=== PATIENT | male | born 1985 | race African-American/Black ===

== ENCOUNTER 2017-02-23 09:38 | Emergency (ER) | payer OTHER ==
[~2017-02-23] VITALS: Ht 167.6 cm; Wt 112.0 kg
[2017-02-23 09:46] VITALS: Ht 167.6 cm; Wt 112.0 kg
[2017-02-23] MEDS ORDERED: HALOPERIDOL 5 MG INJ IM STA (10:55)
[2017-02-23] MEDS ORDERED: LORAZEPAM 2 MG INJ IM ONE (11:00)
--- NOTE | 2017-02-23 12:00 | ERD ---
ER Documentation Chief Complaint Date/Time DATE: 02/23/17 TIME: 11:55 Chief Complaint Patient needs to get a medication refill HPI This is a 31-year-old male who says he needs Valium. The patient says he has psych history but does not know what it is. He states that he just wants some Valium and he wants to go home. The patient is not being very cooperative during exam. When entering the room the patient has a shorts pulled down. He is walking in the hallways trying to use the telephones etc. Says he is not homicidal or suicidal ROS All systems reviewed and are negative except as per history of present illness. Allergies Allergies: Coded Allergies: No Known Allergy (Unverified , 02/23/17) PMhx/Soc Hx Psychiatric Problems: Yes (POSSIBLE PSYCH PROBLEM) FmHx Family History: No coronary disease Physical Exam Vitals Vital Signs Date Time Temp Pulse Resp B/P Pulse Ox O2 Delivery O2 Flow Rate FiO2 02/23/17 09:46 97.7 91 20 128/89 99 Physical Exam Const: [] Head: Atraumatic Eyes: Normal Conjunctiva ENT: Normal External Ears, Nose and Mouth. Neck: Full range of motion..~ No meningismus. Resp: Clear to auscultation bilaterally Cardio: Regular rate and rhythm, no murmurs Abd: Soft, non tender, non distended. Normal bowel sounds Skin: No petechiae or rashes Back: No midline or flank tenderness Ext: No cyanosis, or edema Neur: Awake and alert Psych: Patient has a very strange affect. He will look and stare you without speaking then suddenly start talking very quickly and tangentially. Stating he needs Valium. Results 24 hrs Current Medications Medications (Trade) Dose Ordered Sig/Domingo Route PRN Reason Start Time Stop Time Status Last Admin Dose Admin Haloperidol (Haldol) 5 mg ONCE STAT IM 02/23/17 10:55 02/23/17 10:57 DC 02/23/17 11:11 Lorazepam (Ativan) 1 mg ONCE ONCE IM 02/23/17 11:00 02/23/17 11:01 DC 02/23/17 11:12 Procedures/MDM Patient was moved from ED2 to ED1. Ordered a psych workup was going to have telemetry psych evaluate him for a hold. Patient is bordering on agitation and has very bizarre behavior. He cannot get a good history out of him. Patient left the ER temporarily returned to his room. 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
[2017-02-23 13:56] LABS: BASOPHIL # 0.1 10^3/ul (0.0-0.1); BASOPHILS % 0.7 % (0.0-2.0); EOSINOPHILS # 0.2 10^3/ul (0.0-0.5); EOSINOPHILS % 2.7 % (0.0-7.0); HEMATOCRIT 43.2 % (42.0-52.0); HEMOGLOBIN 14.4 g/dl (14.0-18.0); LYMPHOCYTES # 2.5 10^3/ul (0.8-2.9); LYMPHOCYTES % 33.2 % (15.0-51.0); MEAN CORPUSCULAR HEMOGLOBIN 29.6 pg (29.0-33.0); MEAN CORPUSCULAR HGB CONC 33.3 g/dl (32.0-37.0); MEAN CORPUSCULAR VOLUME 88.7 fl (82.0-101.0); MEAN PLATELET VOLUME 12.5 fl (7.4-10.4); MONOCYTE # 0.6 10^3/ul (0.3-0.9); NEUTROPHIL # 4.2 10^3/ul (1.6-7.5); NEUTROPHILS % 55.1 % (39.0-77.0); PLATELET COUNT 266 10^3/UL (140-415); RED BLOOD COUNT 4.87 10^6/ul (4.70-6.10); RED CELL DISTRIBUTION WIDTH 13.8 % (11.5-14.5); WHITE BLOOD COUNT 7.5 10^3/ul (4.8-10.8)
[2017-02-23 14:04] LABS: ALANINE AMINOTRANSFERASE 61 IU/L (13-69); ALBUMIN 4.4 g/dl (3.3-4.9); ALBUMIN/GLOBULIN RATIO 1.46; ALKALINE PHOSPHATASE 103 IU/L (42-121); ANION GAP 20 (8-16); ASPARTATE AMINO TRANSFERASE 48 IU/L (15-46); BILIRUBIN,INDIRECT 0.2 mg/dl (0-1.1); BILIRUBIN,TOTAL 0.2 mg/dl (0.2-1.3); BLOOD UREA NITROGEN 10 mg/dl (7-20); CARBON DIOXIDE 29 mmol/L (21-31); CHLORIDE 99 mmol/L (97-110); CREATININE 0.93 mg/dl (0.61-1.24); GLUCOSE 97 mg/dl (70-220); POTASSIUM 3.7 mmol/L (3.5-5.1); SODIUM 144 mmol/L (135-144); TOTAL PROTEIN 7.4 g/dl (6.1-8.1)
[2017-02-23 14:06] LABS: ACETAMINOPHEN < 10.0 ug/ml (10.0-30.0); ETHANOL < 10.0 mg/dl; SALICYLATE < 1.0 mg/dl (5.0-30.0)
== END 2017-02-23 15:58 | disposition left against medical advice (07) ==
LOC: FTE 09:38 → E/R 15:58
DX: F23 Brief psychotic disorder (principal)
CPT/HCPCS: 36415; 80053; 80306; 85025; 96372; 99284; J1630; J2060